=== PATIENT | female | born 1980 | race Two or more races ===

== ENCOUNTER → 2018-08-31 | Outpatient (RCR) | payer SELFPAY | END | disposition home or self-care (01) | LOC: WCC 09:52 | DX: T81.32XD Disruption of internal operation (surgical) wound, not elsewhere classified, subsequent encounter (principal); Z41.1 Encounter for cosmetic surgery; X58.XXXD Exposure to other specified factors, subsequent encounter ==

== ENCOUNTER 2018-09-03 10:00 | Outpatient (RCR) | payer SELFPAY | END 2018-10-01 | disposition home or self-care (01) | LOC: WCC 10:00 | DX: T81.32XD Disruption of internal operation (surgical) wound, not elsewhere classified, subsequent encounter (principal); Z41.1 Encounter for cosmetic surgery | CPT/HCPCS: G0277 ×5 ==